=== PATIENT | female | born 1985 | race Caucasian/White ===

== ENCOUNTER 2016-07-05 10:03 | Emergency (ER) | payer BC, OTHER ==
[~2016-07-05] VITALS: Ht 157.5 cm; Wt 60.0 kg
[2016-07-05] MEDS ORDERED: SODIUM CHLOR 0.9% 1000 ML INJ 1,000 ML IV SCH (10:13)
[2016-07-05 10:14] VITALS: BP 134/83; PULSE 94; RESP 14; TEMP 98.4; O2SAT 100
[2016-07-05] MEDS ORDERED: SODIUM CHLORIDE 0.9% FLUSH 10 ML FLUSH IVF PRN (10:15)
--- NOTE | 2016-07-05 10:23 | PD ---
HPI Chief Complaint: Altered Mental Status Time Seen by Provider: 10:13 Travel History International Travel<30 days: No Contact w/Intl Traveler<30days: No Traveled to known affect area: No History of Present Illness HPI This is a 30-year-old female who presents to the emergency department with altered mental status. She has a history of mental retardation, lives in a halfway and was at [facility] when they noticed that she was quite lethargic and falling asleep at the table. This is unlike her. They say there is no recent changes in her medications. They do think she has had some episodes of diarrhea over the past 2 days but otherwise she's been well. She doesn't provide much history. PFSH Past Medical History Bipolar Disorder: Yes Developmental Delay: Yes (MR) ?: Unknown Past Surgical History Surgical History: Unable to Obtain Social History Alcohol Use: No Tobacco Use: No Substance Use: No Allergies-Medications (Allergen,Severity, Reaction): Coded Allergies: UNOBTAINABLE (Unverified , 07/05/16) Reported Meds & Prescriptions Reported Meds & Active Scripts Active Reported Gemfibrozil 600 Mg Tab 600 Mg PO BIDAC Take 30 minutes prior to breakfast and dinner. [Levocamitine] 100 Mg PO DAILY Lopid (Gemfibrozil) 600 Mg Tab 600 Mg PO BIDAC Take 30 minutes prior to breakfast and dinner Trifluoperazine (Trifluoperazine HCl) 2 Mg Tab 2 Mg PO BID Imipramine HCL (Imipramine HCl) 50 Mg Tab 3 Tab PO BID Claritin (Loratadine) 10 Mg Cap 10 Mg PO DAILY Cerefolin NAC (g-Rgyefasyuthx-Zjdmzpndygswhltu-Acetylcystein) 6-2-600 Mg Tab 1 Tab PO HS Review of Systems ROS Limitations: Poor Historian Physical Exam Narrative GENERAL: Somnolent, pale appearing SKIN: Warm and dry. HEAD: Atraumatic. Normocephalic. EYES: Pupils equal and round. No injection or drainage. ENT: Moist mucous membranes NECK: Trachea midline. CARDIOVASCULAR: Regular rate and rhythm. No murmur appreciated. RESPIRATORY: Clear to auscultation. Breath sounds equal bilaterally. GASTROINTESTINAL: Abdomen soft, mildly tender to palpation in the lower abdomen with no rebound or guarding. MUSCULOSKELETAL: No obvious deformities. NEUROLOGICAL: Sleepy, slow to answer questions but does awaken and knows where she is, who she is in the year. No obvious cranial nerve deficits. Moving all extremities. PSYCHIATRIC: Poor insight and judgment. Data Data Last Documented VS Vital Signs Date Time Temp Pulse Resp B/P Pulse Ox O2 Delivery O2 Flow Rate FiO2 07/05/16 10:38 100 Room Air 07/05/16 10:14 98.4 94 14 134/83 Orders Complete Blood Count With Diff (07/05/16 10:13) Comprehensive Metabolic Panel (07/05/16 10:13) Thyroid Stimulating Hormone (07/05/16 10:13) Urinalysis - C+S If Indicated (07/05/16 10:13) Ct Brain W/O Iv Contrast(Rout) (07/05/16 10:13) Blood Glucose (07/05/16 10:13) Ecg Monitoring (07/05/16 10:13) Iv Access Insert/Monitor (07/05/16 10:13) Oximetry (07/05/16 10:13) Sodium Chloride 0.9% Flush (Ns Flush) (07/05/16 10:15) Sodium Chlor 0.9% 1000 Ml Inj (Ns 1000 M (07/05/16 10:13) Drug Screen, Random Urine (07/05/16 10:13) Alcohol (Ethanol) (07/05/16 10:13) Ed Urine Pregnancytest Poc (07/05/16 10:13) Cath For Specimen (07/05/16 10:13) Diet Regular Basic (07/05/16 Dinner) Comprehensive Metabolic Panel (07/05/16 16:19) Blood Gas Venous (Vbg) (07/05/16 16:19) Labs Laboratory Tests Test 07/05/16 07/05/16 07/05/16 07/05/16 10:42 15:29 17:05 17:11 White Blood Count 8.0 TH/MM3 Red Blood Count 4.61 MIL/MM3 Hemoglobin 13.4 GM/DL Hematocrit 39.3 % Mean Corpuscular Volume 85.2 FL Mean Corpuscular Hemoglobin 29.1 PG Mean Corpuscular Hemoglobin 34.1 % Concent Red Cell Distribution Width 14.7 % Platelet Count 263 TH/MM3 Mean Platelet Volume 7.8 FL Neutrophils (%) (Auto) 59.7 % Lymphocytes (%) (Auto) 30.8 % Monocytes (%) (Auto) 8.3 % Eosinophils (%) (Auto) 0.7 % Basophils (%) (Auto) 0.5 % Neutrophils # (Auto) 4.7 TH/MM3 Lymphocytes # (Auto) 2.5 TH/MM3 Monocytes # (Auto) 0.7 TH/MM3 Eosinophils # (Auto) 0.1 TH/MM3 Basophils # (Auto) 0.0 TH/MM3 CBC Comment DIFF FINAL Differential Comment Urine Color YELLOW Urine Turbidity CLEAR Urine pH 7.0 Urine Specific [place] 1.017 Urine Protein NEG mg/dL Urine Glucose (UA) NEG mg/dL Urine Ketones NEG mg/dL Urine Occult Blood NEG Urine Nitrite NEG Urine Bilirubin NEG Urine Urobilinogen LESS THAN 2.0 MG/DL Urine Leukocyte Esterase NEG Urine RBC 3 /hpf Urine WBC LESS THAN 1 /hpf Urine Squamous Epithelial <1 /hpf Cells Urine Mucus FEW /lpf Microscopic Urinalysis Comment CATH-CULT NOT IND Urine Opiates Screen NEG Urine Barbiturates Screen NEG Urine Amphetamines Screen NEG Urine Benzodiazepines Screen NEG Urine Cocaine Screen NEG Urine Cannabinoids Screen NEG Sodium Level 146 MEQ/L 139 MEQ/L Potassium Level 3.3 MEQ/L 3.6 MEQ/L Chloride Level 124 MEQ/L 107 MEQ/L Carbon Dioxide Level 14.4 MEQ/L 22.2 MEQ/L Anion Gap 8 MEQ/L 10 MEQ/L Blood Urea Nitrogen 10 MG/DL 15 MG/DL Creatinine 0.36 MG/DL 0.89 MG/DL Estimat Glomerular Filtration 215 ML/MIN 76 ML/MIN Rate Random Glucose 53 MG/DL 141 MG/DL Calcium Level 6.0 MG/DL 9.8 MG/DL Protein Corrected Calcium 7.0 MG/DL Total Bilirubin 0.2 MG/DL 0.3 MG/DL Aspartate Amino Transf 34 U/L 36 U/L (AST/SGOT) Alanine Aminotransferase 13 U/L 17 U/L (ALT/SGPT) Alkaline Phosphatase 68 U/L 113 U/L Total Protein 4.9 GM/DL 8.0 GM/DL Albumin 2.1 GM/DL 3.9 GM/DL Thyroid Stimulating Hormone 2.300 uIU/ML 3rd Gen Ethyl Alcohol Level LESS THAN 3 MG/DL Blood Gas Puncture Site DRAWN BY RN Blood Gas Patient Temperature 98.6 Venous Blood pH 7.42 Venous Blood Partial Pressure 32 mmHg CO2 Venous Blood Partial Pressure 26 mmHg O2 Venous Blood HCO3 20 mmol/L Venous Blood Oxygen Saturation 42 % Venous Blood Oxygen Content 7.9 Vol % Venous Blood Base Excess -3.3 mmol/L Oxygen Delivery Device ROOM AIR Blood Gas Liter Flow L/M Blood Gas Inspired Oxygen 21 % MDM Medical Decision Making Medical Screen Exam Complete: Yes Emergency Medical Condition: Yes Interpretation(s) No leukocytosis Electrolytes initially looked like there were contaminated with saline, repeat electrolytes were reassuring Blood gas was venous but has a normal pH Urinalysis: No infection Urine drug screen is negative Alcohol is negative [id number] is negative Differential Diagnosis Electrolyte abnormality, polypharmacy, urinary tract infection, , sepsis Narrative Course This is a 30-year-old female who presents to the emergency department with a history of mental retardation. She doesn't provide much history but her staff at her [facility] felt like she was more sleepy than normal. She does appear somewhat sleepy on exam. She was placed on a monitor and an IV was established. Labs are all reassuring. Urinalysis is negative for infection [id number] test was negative. There were several challenges with obtaining blood draws on this patient. CMP was ultimately obtained by me and was normal. Patient was discharged home. Diagnosis Primary Impression: Fatigue Qualified Code: R53.83 - Fatigue, unspecified type Patient Instructions: General Instructions Additional Instructions: If you develop severe chest pain, shortness of breath, sweating, lightheadedness , dizziness or difficulty breathing return to the emergency department immediately. Followup with your primary care physician in 2-3 days if your symptoms are not resolved. Med/Other Pt SpecificInfo: No Change to Meds Disposition: 01 DISCHARGE HOME Condition: Stable Ramona Santos MD Jul 05, 2016 10:23
[2016-07-05] MEDS ORDERED: CLAR10CA3 PO (10:24)
[2016-07-05] MEDS ORDERED: GEMF600 PO (10:24)
[2016-07-05] MEDS ORDERED: TRIF2TAB PO (10:24)
[2016-07-05] MEDS ORDERED: [UNRECOGNIZED DRUG - OTHER] PO (10:24)
[2016-07-05] MEDS ORDERED: IMIP50TA PO (10:24)
[2016-07-05] MEDS ORDERED: GEMF600T PO (10:24)
[2016-07-05] MEDS ORDERED: CERETAB PO (10:24)
[2016-07-05 10:38] VITALS: O2SAT 100
[2016-07-05 10:56] LABS: AUTOMATED NEUTROPHIL # 4.7 TH/MM3 (1.8-7.7); BASOPHIL % 0.5 % (0.0-2.0); EOSINOPHIL # 0.1 TH/MM3 (0-0.4); EOSINOPHIL % 0.7 % (0.0-4.0); HEMATOCRIT 39.3 % (35.0-46.0); HEMO FLAGS DIFF FINAL; LYMPH % 30.8 % (9.0-44.0); LYMPHOCYTE # 2.5 TH/MM3 (1.0-4.8); MEAN CELL VOLUME 85.2 FL (80.0-100.0); MEAN CORPUSCULAR HEMOGLOBIN 29.1 PG (27.0-34.0); MEAN CORPUSCULAR HGB CONC 34.1 % (32.0-36.0); MONO % 8.3 % (0.0-8.0); NEUT % 59.7 % (16.0-70.0); PLATELET COUNT 263 TH/MM3 (150-450); RED BLOOD COUNT 4.61 MIL/MM3 (4.00-5.30); RED CELL DISTRIBUTION WIDTH 14.7 % (11.6-17.2)
[2016-07-05 10:57] LABS: BLOOD, URINE NEG (NEG); COMMENT (UR) CATH-CULT NOT IND; CULTURE IF INDICATED CATH CULTURE NOT IND; GLUCOSE,URINE NEG (NEG); KETONE, URINE NEG (NEG); MUCUS URINE FEW /lpf (OCC); NITRITE,URINE NEG (NEG); SQUAMOUS EPITHELIAL CELL URINE <1 /hpf (0-5); URINE COLOR YELLOW (YELLW/STRAW)
[2016-07-05 11:02] LABS: AMPHETAMINE, URINE NEG (NEG); BARBITURATES, URINE NEG (NEG); COCAINE, URINE NEG (NEG)
--- NOTE | 2016-07-05 12:00 | RADRPT ---
EXAM DATE/TIME: 07/05/2016 11:31 [place] COMPARISON: No previous studies available for comparison. INDICATIONS : Altered mental status. Lethargic. RADIATION DOSE: 56.77 CTDIvol (mGy) MEDICAL HISTORY : Mental retardation. SURGICAL HISTORY : None. ENCOUNTER: Initial ACUITY: 1 day PAIN SCALE: 0/10 LOCATION: cranial TECHNIQUE: Multiple contiguous axial images were obtained of the head. Using automated exposure control and adj ustment of the mA and/or kV according to patient size, radiation dose was kept as low as reasonably a chievable to obtain optimal diagnostic quality images. FINDINGS: CEREBRUM: The ventricles are normal for age. No evidence of midline shift, mass lesion, hemorrhage or acute in farction. No extra-axial fluid collections are seen. POSTERIOR FOSSA: The cerebellum and brainstem are intact. The 4th ventricle is midline. The cerebellopontine angle i s unremarkable. EXTRACRANIAL: The visualized portion of the orbits is intact. SKULL: The calvaria is intact. No evidence of skull fracture. CONCLUSION: 1. No acute intracranial abnormality. Keith Hill MD on July 05, 2016 at 11:57 Board Certified Radiologist. This report was verified electronically.
[2016-07-05 16:05] LABS: ALKALINE PHOSPHATASE 68 U/L (45-117); ALT (GPT) 13 U/L (10-53); ANION GAP 8 MEQ/L (5-15); AST (GOT) 34 U/L (15-37); BICARBONATE 14.4 MEQ/L (21.0-32.0); BLOOD UREA NITROGEN 10 MG/DL (7-18); CHLORIDE 124 MEQ/L (98-107); GLOMERULAR FILTRATION RATE 215 ML/MIN (>89); POTASSIUM 3.3 MEQ/L (3.5-5.1); SODIUM (NA) 146 MEQ/L (136-145); TOTAL BILIRUBIN ADULT 0.2 MG/DL (0.2-1.0)
[2016-07-05 17:21] LABS: BLOOD GAS VENOUS BASE EXCESS -3.3 mmol/L (-2-2); BLOOD GAS VENOUS HCO3 20 mmol/L (22-26); BLOOD GAS VENOUS O2 CONTENT 7.9 Vol % (9.0-17.0); BLOOD GAS VENOUS O2 HGB SAT 42 % (70-76); BLOOD GAS VENOUS PCO2 32 mmHg (44-48); BLOOD GAS VENOUS PO2 26 mmHg (35-40); BLOOD GAS VENOUS pH 7.42 (7.360-7.400); CRITICAL VALUE YES; FIO2 21 %; OXYGEN DEVICE ROOM AIR; TEMP CORR TO 98.6
[2016-07-05 17:46] LABS: ALKALINE PHOSPHATASE 113 U/L (45-117); ALT (GPT) 17 U/L (10-53); ANION GAP 10 MEQ/L (5-15); AST (GOT) 36 U/L (15-37); BICARBONATE 22.2 MEQ/L (21.0-32.0); BLOOD UREA NITROGEN 15 MG/DL (7-18); CHLORIDE 107 MEQ/L (98-107); GLOMERULAR FILTRATION RATE 76 ML/MIN (>89); POTASSIUM 3.6 MEQ/L (3.5-5.1); SODIUM (NA) 139 MEQ/L (136-145); TOTAL BILIRUBIN ADULT 0.3 MG/DL (0.2-1.0)
[2016-07-09 14:11] LABS: STAT YES
== END 2016-07-05 20:09 | disposition home or self-care (01) ==
LOC: NEPC 10:03
DX: R53.83 Other fatigue (principal); F31.9 Bipolar disorder, unspecified; F79 Unspecified intellectual disabilities
CPT/HCPCS: 70450; 80053; 80307; 81001; 82805; 84443; 84703; 85025; 96360; 96361; 99284; J7030

== ENCOUNTER 2017-09-29 08:00 | Emergency (ER) | payer BC, OTHER ==
[~2017-09-29] VITALS: Ht 142.2 cm; Wt 66.5 kg
[~2017-09-29 08:00] MED LIST: CERETAB PO; CLAR10CA3 PO; GEMF600 PO; GEMF600T PO; IMIP50TA PO; TRIF2TAB PO; [UNRECOGNIZED DRUG - OTHER] PO
[2017-09-29 08:13] VITALS: BP 164/86; PULSE 98; RESP 21; TEMP 99.1; O2SAT 100
[2017-09-29 09:27] LABS: AUTOMATED NEUTROPHIL # 4.9 TH/MM3 (1.8-7.7); BASOPHIL % 0.5 % (0.0-2.0); EOSINOPHIL # 0.5 TH/MM3 (0-0.4); EOSINOPHIL % 4.5 % (0.0-4.0); HEMATOCRIT 37.9 % (35.0-46.0); LYMPH % 36.6 % (9.0-44.0); LYMPHOCYTE # 3.7 TH/MM3 (1.0-4.8); MEAN CELL VOLUME 89.7 FL (80.0-100.0); MEAN CORPUSCULAR HEMOGLOBIN 30.8 PG (27.0-34.0); MEAN CORPUSCULAR HGB CONC 34.4 % (32.0-36.0); MEAN PLATELET VOLUME 7.6 FL (7.0-11.0); MONO % 9.8 % (0.0-8.0); NEUT % 48.6 % (16.0-70.0); PLATELET COUNT 271 TH/MM3 (150-450); RED BLOOD COUNT 4.22 MIL/MM3 (4.00-5.30); RED CELL DISTRIBUTION WIDTH 14.3 % (11.6-17.2); WHITE BLOOD COUNT 10.1 TH/MM3 (4.0-11.0)
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
[2017-09-29] MEDS ORDERED: CARNPOW PO (09:37)
[2017-09-29] MEDS ORDERED: CLAR10CA3 PO (09:37)
[2017-09-29] MEDS ORDERED: GEMF600T PO (09:37)
[2017-09-29] MEDS ORDERED: DIVA250ER PO (09:37)
[2017-09-29] MEDS ORDERED: TOFR50TA PO (09:37)
[2017-09-29] MEDS ORDERED: MEDR150I IM (09:37)
[2017-09-29] MEDS ORDERED: TYLE325T PO (09:37)
[2017-09-29] MEDS ORDERED: DEPA500T PO (09:37)
[2017-09-29] MEDS ORDERED: RISP1 (09:37)
[2017-09-29] MEDS ORDERED: BUSP15TA PO (09:37)
[2017-09-29 09:46] LABS: ALBUMIN 3.9 GM/DL (3.4-5.0); AST (GOT) 48 U/L (15-37); BICARBONATE 21.2 MEQ/L (21.0-32.0); BLOOD UREA NITROGEN 13 MG/DL (7-18); CALCIUM 11.4 MG/DL (8.5-10.1); CHLORIDE 110 MEQ/L (98-107); CREATININE 0.92 MG/DL (0.50-1.00); GLOMERULAR FILTRATION RATE 72 ML/MIN (>89); GLUCOSE,RANDOM 89 MG/DL (74-106); SODIUM (NA) 140 MEQ/L (136-145)
[2017-09-29 09:51] LABS: BILIRUBIN, URINE NEG (NEG); BLOOD, URINE NEG (NEG); GLUCOSE,URINE NEG (NEG); KETONE, URINE NEG (NEG); NITRITE,URINE NEG (NEG); SQUAMOUS EPITHELIAL CELL URINE <1 /hpf (0-5); URINE COLOR Straw (YELLW/STRAW); URINE LEUKOCYTE ESTERASE TRACE (NEG)
[2017-09-29 09:57] LABS: ALKALINE PHOSPHATASE 128 U/L (45-117); ALT (GPT) 26 U/L (10-53); TOTAL BILIRUBIN ADULT 0.2 MG/DL (0.2-1.0); TOTAL PROTEIN 7.8 GM/DL (6.4-8.2)
[2017-09-29 10:05] LABS: ACETAMINOPHEN LESS THAN 2.0 MCG/ML (10.0-30.0)
[2017-09-30 02:14] VITALS: BP 123/77; PULSE 110; RESP 18; O2SAT 97
[2017-09-30 06:27] VITALS: BP 131/81; PULSE 72; RESP 16; O2SAT 98
--- NOTE | 2017-09-30 10:16 | PD ---
Physical Exam Time Seen by Provider: 10:[address] Purcell has evaluated patient, lifted the Riddle act and cleared the patient for discharge. Data Data Last Documented VS Vital Signs Date Time Temp Pulse Resp B/P (MAP) Pulse Ox O2 Delivery O2 Flow Rate FiO2 09/30/17 06:27 72 16 131/81 (98) 98 Room Air 09/29/17 08:13 99.1 Orders Orders Complete Blood Count With Diff (09/29/17 08:24) Comprehensive Metabolic Panel (09/29/17 08:24) Thyroid Stimulating Hormone (09/29/17 08:24) Psych Screen (09/29/17 08:24) Drug Screen, Random Urine (09/29/17 08:24) Alcohol (Ethanol) (09/29/17 08:24) Salicylates (Aspirin) (09/29/17 08:24) Tylenol (Acetaminophen) (09/29/17 08:24) Urinalysis - C+S If Indicated (09/29/17 08:24) Ed Urine Pregnancytest Poc (09/29/17 08:24) Diet Regular Basic (09/29/17 Breakfast) Diet Regular Basic (09/29/17 Lunch) Diet Regular Basic (09/29/17 Dinner) Diet Regular Basic (09/30/17 Breakfast) Labs Laboratory Tests Test 09/29/17 08:30 09/29/17 08:40 Urine Color Straw Urine Turbidity CLEAR Urine pH 7.0 Urine Specific [place] 1.008 Urine Protein NEG mg/dL Urine Glucose (UA) NEG mg/dL Urine Ketones NEG mg/dL Urine Occult Blood NEG Urine Nitrite NEG Urine Bilirubin NEG Urine Urobilinogen LESS THAN 2 mg/dL Urine Leukocyte Esterase TRACE Urine RBC LESS THAN 1 /hpf Urine WBC 3 /hpf Urine Squamous Epithelial Cells <1 /hpf Microscopic Urinalysis Comment CULT NOT INDICATED Urine Opiates Screen NEG Urine Barbiturates Screen NEG Urine Amphetamines Screen NEG Urine Benzodiazepines Screen NEG Urine Cocaine Screen NEG Urine Cannabinoids Screen NEG White Blood Count 10.1 TH/MM3 Red Blood Count 4.22 MIL/MM3 Hemoglobin 13.0 GM/DL Hematocrit 37.9 % Mean Corpuscular Volume 89.7 FL Mean Corpuscular Hemoglobin 30.8 PG Mean Corpuscular Hemoglobin Concent 34.4 % Red Cell Distribution Width 14.3 % Platelet Count 271 TH/MM3 Mean Platelet Volume 7.6 FL Neutrophils (%) (Auto) 48.6 % Lymphocytes (%) (Auto) 36.6 % Monocytes (%) (Auto) 9.8 % Eosinophils (%) (Auto) 4.5 % Basophils (%) (Auto) 0.5 % Neutrophils # (Auto) 4.9 TH/MM3 Lymphocytes # (Auto) 3.7 TH/MM3 Monocytes # (Auto) 1.0 TH/MM3 Eosinophils # (Auto) 0.5 TH/MM3 Basophils # (Auto) 0.0 TH/MM3 CBC Comment DIFF FINAL Differential Comment Blood Urea Nitrogen 13 MG/DL Creatinine 0.92 MG/DL Random Glucose 89 MG/DL Total Protein 7.8 GM/DL Albumin 3.9 GM/DL Calcium Level 11.4 MG/DL Alkaline Phosphatase 128 U/L Aspartate Amino Transf (AST/SGOT) 48 U/L Alanine Aminotransferase (ALT/SGPT) 26 U/L Total Bilirubin 0.2 MG/DL Sodium Level 140 MEQ/L Potassium Level 3.9 MEQ/L Chloride Level 110 MEQ/L Carbon Dioxide Level 21.2 MEQ/L Anion Gap 9 MEQ/L Estimat Glomerular Filtration Rate 72 ML/MIN Thyroid Stimulating Hormone 3rd Gen 5.050 uIU/ML Salicylates Level LESS THAN 1.7 MG/DL Acetaminophen Level LESS THAN 2.0 MCG/ML Ethyl Alcohol Level LESS THAN 3 MG/DL MDM Supervised Visit with ANGEL: No Narrative Course Dr. Purcell has evaluated patient, lifted the Riddle act and cleared the patient for discharge. Patient contracts safety. Denies suicidal or homicidal ideations. Patient will be provided community resource packet to [facility] for follow-up. Has friends and family for support. Patient was medically cleared by alternate provider prior to psych screening. Patient has been evaluated by psychiatry and and is now cleared for discharge. Diagnosis Primary Impression: Intermittent explosive disorder Additional Impression: High thyroid stimulating hormone (TSH) level Referrals: [facility] (Out patient) [facility] Primary Care Physician Psychiatrist [facility] Patient Instructions: General Instructions, Hypothyroidism (ED), Mood Disorders (ED) Additional Instruction: Follow-up with primary care provider in regards to elevated TSH level Contract safety to your self and others Follow-up with psychiatry Follow-up with primary care provider Follow-up with Brenden Kwok Return to the emergency department immediately with worsening of symptoms Med/Other Pt SpecificInfo: No Change to Meds, No Meds Exist/No RX given Disposition: 01 DISCHARGE HOME Condition: Stable Savita Ortega Sep 30, 2017 10:16
[2017-09-30] MEDS ORDERED: DIVALPROEX DR 500 MG TABEC PO ONE (11:15)
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
== END 2017-09-30 11:42 | disposition home or self-care (01) ==
LOC: NEPD 08:00 → NEPJ 09-30 11:42
DX: Z02.89 Encounter for other administrative examinations (principal); R94.6 Abnormal results of thyroid function studies; F63.81 Intermittent explosive disorder; F43.24 Adjustment disorder with disturbance of conduct; F63.9 Impulse disorder, unspecified; R30.0 Dysuria; Z79.899 Other long term (current) drug therapy; Z86.59 Personal history of other mental and behavioral disorders
CPT/HCPCS: 80053; 80307; 81001; 84443; 84703; 85025; 99284